=== PATIENT | female | born 2000 | race Caucasian/White ===

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

== ENCOUNTER → 2024-01-29 | Outpatient (CLI) | payer OTHER | LOC: LAB 11:35 → LAB SHORT 11:35 | PROVIDERS: Obstetrics & Gynecology | DX: Z01.419 Encounter for gynecological examination (general) (routine) without abnormal findings (principal) | CPT/HCPCS: G0123 ==